=== PATIENT | female | born 1955 | race Two or more races ===

== ENCOUNTER 2023-10-09 06:57 | Day surgery (SDC) | payer OTHER ==
[2023-09-18 09:11] LABS: URINE APPEARANCE Clear; URINE BILIRRUBIN Negative (NEGATIVE); URINE BLOOD Negative; URINE COLOR Yellow; URINE GLUCOSE Negative (NEGATIVE); URINE LEUKOCYTE Trace; URINE NITRATE Negative; URINE PROTEIN Negative (NEGATIVE)
[2023-09-18 09:15] LABS: URINE BACTERIA 602.1 uL (0.0-1933); URINE EPITHELIAL CELLS 13.2 uL (0.0-38.8); URINE RBC 3.1 uL (0.0-20.8); URINE WBC 19.4 uL (0.0-23.2)
[2023-09-18 09:38] LABS: HEMOGLOBIN 14.4 g/dL (12.0-15.00); MEAN CELL VOLUME 87.6 fL (80.00-100.00); MEAN CORPUSCULAR HEMOGLOBIN 28.6 pg (27.00-32.0); MEAN CORPUSCULAR HGB CONC 32.7 g/dl (32.0-36.0); PLATELET COUNT 263 K/uL (150-450); RED BLOOD COUNT 5.03 M/uL (4.00-6.00); RED CELL DISTRIBUTION WIDTH 14.5 % (11.5-14.5)
[2023-09-18 10:17] LABS: INR 1.04; PARTIAL THROMBOPLASTIN TIME 33.6 SECONDS (22.0-34.0); PROTHROMBIN TIME 10.9 SECONDS (9.0-11.5)
[2023-09-18 10:22] LABS: BILIRUBIN TOTAL 0.38 mg/dL (0.3-1.2); CALCIUM 9.4 mg/dL (8.5-10.1); CREATININE SERUM 0.63 mg/dL (0.55-1.02); GFR 94.25; GLOBULINA 4.4 G/DL (2.4-3.5); POTASSIUM 3.91 mEq/L (3.5-5.1); TOTAL PROTEIN 8.4 gm/dL (6.4-8.2)
[~2023-10-09 06:57] MED LIST: COZAAR50 MG PO; CRESTOR20 MG PO; TOPROL XL25 M1 PO
[2023-10-09] MEDS ORDERED: CEFAZOLIN SODIUM 1,000 MG VIAL ONE (10:04)
[2023-10-09] MEDS ORDERED: CEFAZOLIN SODIUM 1,000 MG VIAL IV ONE (11:30)
== END 2023-10-09 14:50 | disposition home or self-care (01) ==
LOC: CIR.AMB 06:57
PROVIDERS: ATTEND Surgery
DX: D05.12 Intraductal carcinoma in situ of left breast (principal); D48.62 Neoplasm of uncertain behavior of left breast; N60.92 Unspecified benign mammary dysplasia of left breast; I10 Essential (primary) hypertension; E78.00 Pure hypercholesterolemia, unspecified; Z88.6 Allergy status to analgesic agent
CPT/HCPCS: 19301; 19281; L8699